=== PATIENT | female | born 1935 | race Caucasian/White ===

== ENCOUNTER 2018-09-01 13:39 | Outpatient (CLI) | payer MEDICARE ==
--- NOTE | 2018-09-01 15:28 | CT ---
CT ABDOMEN WITH AND WITHOUT IV CONTRAST: HISTORY: Jaundice and abnormal labs. FINDINGS: The lung bases are clear. Numerous calcified granulomas are seen in the liver and spleen. No calcif ied gallstones are noted. There are dilated intra- and extrahepatic biliary ducts with the common bile duct measuring 11 mm. T he pancreatic duct is dilated. There is a 2 cm hypodense lesion of the head and uncinate process of the pancreas. There is an indeterminate 1 cm lesion in the tip of the right lobe of the liver. Adrenal glands are normal. Low density lesions in the kidneys are likely small cysts. No free air, free fluid, or lymphadenopathy is seen in the abdomen. There are vascular calcifications without ane urysmal dilatation of the abdominal aorta. A small hiatal hernia is present. The celiac axis and SM A and portosplenic veins are normal. Multiple colonic diverticula are present. IMPRESSION: 1. 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 Endoscopic US is recommended. 2. Indeterminate 1 cm right liver lobe mass. 3. Old granulomatous disease in the liver and spleen. 4. Small hiatal hernia. 5. Bilateral renal cysts. 6. Colonic diverticulosis.] CODE T POS: TPC
== END 2018-09-01 13:40 | disposition home or self-care (01) ==
LOC: SCSCT 13:39
PROVIDERS: ATTEND Family Medicine
DX: K83.8 Other specified diseases of biliary tract (principal); R16.0 Hepatomegaly, not elsewhere classified; K86.89 Other specified diseases of pancreas; D71 Functional disorders of polymorphonuclear neutrophils; K44.9 Diaphragmatic hernia without obstruction or gangrene; N28.1 Cyst of kidney, acquired; K57.30 Diverticulosis of large intestine without perforation or abscess without bleeding
CPT/HCPCS: 74170